=== PATIENT | female | born 1970 | race Caucasian/White ===

== ENCOUNTER → 2021-12-24 | Outpatient (CLI) | payer MEDICARE ==
[~2021-12-24] MED LIST: LEVOTHYROXINE PO; METOPROLOL PO; ZOLOFT PO
== END ==
LOC: MAMMO 10:38
PROVIDERS: ATTEND Internal Medicine
DX: Z12.31 Encounter for screening mammogram for malignant neoplasm of breast (principal); Z13.820 Encounter for screening for osteoporosis
CPT/HCPCS: 77067; 77080

== ENCOUNTER → 2022-01-27 | Outpatient (CLI) | payer MEDICARE | LOC: MAMMO 07:30 | PROVIDERS: ATTEND Internal Medicine | DX: R92.8 Other abnormal and inconclusive findings on diagnostic imaging of breast (principal) ==

== ENCOUNTER → 2022-11-30 | Outpatient (CLI) | payer MEDICARE | LOC: RAD 12:53 | PROVIDERS: ATTEND Internal Medicine | DX: M79.674 Pain in right toe(s) (principal) ==

== ENCOUNTER → 2025-01-02 | Outpatient (REF) | payer MEDICARE | LOC: MAMMO 09:53 | PROVIDERS: ATTEND Internal Medicine | DX: Z12.31 Encounter for screening mammogram for malignant neoplasm of breast (principal); Z13.820 Encounter for screening for osteoporosis | CPT/HCPCS: 77067; 77080 ==

== ENCOUNTER 2025-01-30 08:10 | Observation (INO) | payer MEDICARE ==
[~2025-01-30] VITALS: Ht 170.2 cm; Wt 75.7 kg
[2025-01-30] VITALS (10 sets, daily range): BP systolic 125–138; BP diastolic 70–73; PULSE 54–92; RESP 16; TEMP 97.5–97.8; O2SAT 96–100
[2025-01-30 08:59] LABS: BASOPHILS % 0.6 % (0.0-1.0); EOSINOPHILS % 8.6 % (0.0-6.0); LYMPHOCYTES % 30.7 % (18.0-39.1); MONOCYTES % 4.4 % (4.4-11.3); NEUTROPHILS % 55.5 % (38.7-80.0); RED CELL DISTRIBUTION WIDTH 12.9 % (11.7-14.4)
[2025-01-30] MEDS ORDERED: SODIUM CHLORIDE FLUSH 10 ML SYR IV PRN (09:00)
[2025-01-30] MEDS ORDERED: HYDROCHLOROTH12.5 MG PO (09:06)
[2025-01-30] MEDS ORDERED: LEVOTHYROXINE50 MCG PO (09:06)
[2025-01-30] MEDS ORDERED: ZETIA10 MG PO (09:07)
[2025-01-30] MEDS ORDERED: ASPIRIN81 MG PO (09:07)
[2025-01-30 09:24] LABS: INR 0.91
[2025-01-30 09:28] LABS: EST GLOMERULAR FILTRATION RATE 63.0 ML/MIN (>=60)
[2025-01-30] MEDS: FAMOTIDINE 20 MG/2 ML VIAL IV SCH (10:24)
[2025-01-30] MEDS ORDERED: ONDANSETRON HCL INJ 2MG/ML 2ML 2 MG/ML VIAL IV PRN ×2 (11:15→15:45)
[2025-01-30] MEDS ORDERED: SODIUM CHLORIDE FLUSH 10 ML SYR INJ PRN (11:15)
[2025-01-30] MEDS ORDERED: BENZONATATE 100 MG CAP PO PRN (15:45)
[2025-01-30] MEDS ORDERED: LIDOCAINE 4% PATCH TP PRN (15:45)
[2025-01-30] MEDS ORDERED: DEXTROSE 50% SYRINGE 50 ML IV PRN (15:45)
[2025-01-30] MEDS ORDERED: POTASSIUM CHLORIDE 20 MEQ TAB CR PO PRN (15:45)
[2025-01-30] MEDS ORDERED: ALBUTEROL/IPRATROPIUM 3 ML NEB NEB PRN (15:45)
[2025-01-30] MEDS ORDERED: HYDRALAZINE HCL 20 MG/ML VIAL IV PRN (15:45)
[2025-01-30] MEDS ORDERED: DOCUSATE SODIUM 100 MG CAP PO PRN (15:45)
[2025-01-30] MEDS ORDERED: SIMETHICONE 80 MG CHEW PO PRN (15:45)
[2025-01-30] MEDS ORDERED: VITAMIN C500 MG PO (16:40)
[2025-01-30] MEDS ORDERED: B COMPLEX1 EACH PO (16:40)
[2025-01-30] MEDS ORDERED: [UNRECOGNIZED DRUG - OTHER] PO (16:40)
[2025-01-30] MEDS ORDERED: MULTIVITAMIN PO (16:40)
[2025-01-30] MEDS: DIPHENHYDRAMINE HCL 25 MG CAP PO SCH (17:10)
[2025-01-30] MEDS: SODIUM CHLORIDE 0.9% 1000ML 1,000 ML IV SCH (17:10)
[2025-01-30] MEDS: ENOXAPARIN SOD INJ 40 MG/0.4 ML SYR SC SCH (17:10)
[2025-01-30] MEDS: MELATONIN 5 MG TABLET PO PRN (20:45)
[2025-01-30] MEDS: METHYLPREDNISOLONE SOD SUCC 40 MG/ML VIAL 1ML IV SCH (20:46)
[2025-01-30] MEDS: DIPHENHYDRAMINE HCL 25 MG CAP PO PRN (20:46)
[2025-01-31] VITALS (9 sets, daily range): BP systolic 100–115; BP diastolic 71–75; PULSE 50–89; RESP 14–18; TEMP 97.9–98.2; O2SAT 93–100
[2025-01-31 05:57] LABS: EST GLOMERULAR FILTRATION RATE 81.0 ML/MIN (>=60)
[2025-01-31 06:15] LABS: BASOPHILS % 0.1 % (0.0-1.0); EOSINOPHILS % 0.0 % (0.0-6.0); LYMPHOCYTES % 7.3 % (18.0-39.1); MONOCYTES % 1.2 % (4.4-11.3); NEUTROPHILS % 90.8 % (38.7-80.0); RED CELL DISTRIBUTION WIDTH 13.2 % (11.7-14.4)
[2025-01-31] MEDS: ACETAMINOPHEN 325 MG TAB PO PRN (06:49)
[2025-01-31 07:25] LABS: CHOL/HDL RATIO 4.7 (3.0-3.6); LDL CHOLESTEROL 124.0 MG/DL (60-130); PHOSPHORUS 3.9 MG/DL (2.3-4.7)
[2025-01-31] MEDS ORDERED: PANTOPRAZOLE SOD 40 MG TABEC PO SCH (07:30)
[2025-01-31] MEDS ORDERED: MECLIZINE HCL 12.5 MG TAB PO PRN (15:30)
== END 2025-01-31 17:07 | disposition home or self-care (01) ==
LOC: ER 08:29 → UNDOADMOB 11:08 → ERHOLD 11:08 → IMCU 16:23
PROVIDERS: ADMIT Internal Medicine; ATTEND Internal Medicine
DX: T78.3XXA Angioneurotic edema, initial encounter (principal); T78.49XA Other allergy, initial encounter; R07.89 Other chest pain; I10 Essential (primary) hypertension; E78.5 Hyperlipidemia, unspecified; Z86.19 Personal history of other infectious and parasitic diseases; E03.9 Hypothyroidism, unspecified; Z72.0 Tobacco use
CPT/HCPCS: 36415 ×2; 70450; 71045; 80053 ×2; 80061; 82550 ×2; 83036; 83735; 83880; 84100; 84443; 84484 ×2; 85025 ×2; 85610; 85730; 93005; 93306; 93880; 94760; 94799 ×2; 99252; 99284; G0378 ×2; J1308 ×2; J1650; J2919 ×2; J7030 ×2